=== PATIENT | male | born 1945 | race Caucasian/White ===

== ENCOUNTER 2021-08-30 11:59 | Day surgery (SDC) | payer MEDICARE, BC ==
[~2021-08-30] VITALS: Ht 180.3 cm; Wt 86.5 kg
[~2021-08-30 11:59] MED LIST: ASPIRIN 32325 MG/TAB PO
[2021-08-30 12:51] VITALS: BP 140/58; PULSE 72; TEMP 97.5
[2021-08-30] MEDS ORDERED: COUMADIN 5MG5 MG/TAB PO (13:04)
[2021-08-30 13:33] LABS: BASO % 0.3 % (0.0-2.0); EOS # 0.3 K/mm3 (0.0-0.7); EOS % 4.1 % (0.0-4.0); GRAN # 4.7 K/mm3 (1.4-6.5); GRAN % 74.8 % (42.2-75.2); HEMATOCRIT 41.3 % (42.0-52.0); LYMPH # 0.7 K/mm3 (1.2-3.4); LYMPH % 11.4 % (20.0-51.0); MEAN CELL VOLUME 91 fl (80.0-100.0); MEAN CORPUSCULAR HEMOGLOBIN 31 pg (27-31); MEAN CORPUSCULAR HGB CONC 34 g/dl (33.0-37.0); MEAN PLATELET VOLUME 8.9 fl (7.4-10.4); MONO # 0.6 K/mm3 (0.1-0.6); MONO % 9.1 % (1.7-9.3); PLATELET COUNT 184 K/mm3 (130-400); RED BLOOD COUNT 4.52 M/mm3 (4.20-5.60); REDCELL DISTRIBUTION WIDTH-CV 13.7 % (11.5-14.5)
[2021-08-30 13:48] LABS: INR 1.2 (0.8-3.0); PROTHROMBIN TIME 13.3 SECONDS (9.7-12.8)
[2021-08-30 13:51] LABS: ALBUMIN 3.5 gm/dL (3.4-4.8); BILIRUBIN,TOTAL 0.8 mg/dL (0.2-1.2); CALCIUM 9.1 mg/dL (8.4-10.2); CREATININE, serum 0.95 mg/dL (0.72-1.25); POTASSIUM 4.2 mmol/L (3.5-4.5); TOTAL PROTEIN 6.5 gm/dL (6.2-8.1)
[2021-08-30] MEDS ORDERED: MOTRIN 600600 MG/TAB PO (14:02)
[2021-08-30] MEDS ORDERED: NORCO 325 MG-51 TAB PO (14:02)
[2021-08-30 16:22] VITALS: BP 147/67; PULSE 74
--- NOTE | 2021-08-30 16:22 | NUR ---
Patient returns to room 5 per cart from PACU accompanied by Anna RN and is awake and alert. IV fluids infusing and site is free of redness. Incisions X5 on abdomen covered with exofin skin glue with wound edges well approximated. Temp 99.4. Siderails up x2 and call light in reach. Allowed to rest. Son in room.
[2021-08-30 16:37] VITALS: BP 121/60; PULSE 75
--- NOTE | 2021-08-30 16:37 | NUR ---
Taking juice and resting without complaints of pain or nausea.
[2021-08-30 16:52] VITALS: BP 135/60; PULSE 75
--- NOTE | 2021-08-30 16:52 | NUR ---
Eating muffin. Continues to deny pain or nausea. No drainage noted from incisions.
[2021-08-30 17:07] VITALS: BP 133/60; PULSE 78
--- NOTE | 2021-08-30 17:07 | NUR ---
Denies pain or nausea. Talking with son. IV fluids continue to infuse.
[2021-08-30 17:17] VITALS: BP 154/75; PULSE 75; TEMP 99.2
--- NOTE | 2021-08-30 17:20 | NUR ---
IV to INT. Assisted up to the bathroom. Gait steady.
--- NOTE | 2021-08-30 17:30 | NUR ---
Patient voids and returns to room. Dresses self. Continues to deny nausea or pain.
--- NOTE | 2021-08-30 17:50 | NUR ---
INT needle discontinued and site is free of redness. Dressed and ready for discharge.
--- NOTE | 2021-08-30 17:53 | NUR ---
Patient voices understanding of dismissal instructions and instructed that pain medications are available at [facility]. Patient dismissed to home driven by son per private vehicle and assisted into car with dismissal instructions in hand.
== END 2021-08-30 17:53 | disposition home or self-care (01) ==
LOC: SDCO 11:59
PROVIDERS: Surgery
DX: K80.10 Calculus of gallbladder with chronic cholecystitis without obstruction (principal); Z79.01 Long term (current) use of anticoagulants; F17.210 Nicotine dependence, cigarettes, uncomplicated
CPT/HCPCS: J0690; J1100; J1885; J2405; J2704; J3010; J7120